=== PATIENT | female | born 1955 | race Caucasian/White ===

== ENCOUNTER → 2023-11-12 11:12 | Outpatient (REF) | payer MEDICARE, OTHER, SELFPAY ==
[2023-11-12 13:00] LABS: TSH < 0.02 uIU/ml (0.47-4.68)
== END ==
LOC: REG 11:12
PROVIDERS: ATTENDING PHYSICIAN Family Medicine
DX: E03.9 Hypothyroidism, unspecified (principal)
CPT/HCPCS: 36415; 84439; 84443

== ENCOUNTER → 2023-11-19 06:23 | Day surgery (SDC) | payer MEDICARE, OTHER, SELFPAY | LOC: GI 06:23 | PROVIDERS: ATTENDING PHYSICIAN Specialist; FAMILY PHYSICIAN Family Medicine | DX: K51.919 Ulcerative colitis, unspecified with unspecified complications (principal); K57.30 Diverticulosis of large intestine without perforation or abscess without bleeding; K52.89 Other specified noninfective gastroenteritis and colitis | CPT/HCPCS: 45380; 88305 ==

== ENCOUNTER → 2023-12-12 10:58 | Outpatient (REF) | payer MEDICARE, OTHER, SELFPAY ==
[2023-12-12 12:15] LABS: Free T4 1.14 ng/dl (0.78-2.19)
[2023-12-12 12:29] LABS: TSH 2.77 uIU/ml (0.47-4.68)
== END ==
LOC: REG 10:58
PROVIDERS: ATTENDING PHYSICIAN Family Medicine
DX: E03.9 Hypothyroidism, unspecified (principal)
CPT/HCPCS: 36415; 84439; 84443

== ENCOUNTER → 2023-12-23 12:14 | Outpatient (REF) | payer MEDICARE, OTHER, SELFPAY | LOC: WDC 12:14 | PROVIDERS: ATTENDING PHYSICIAN Obstetrics & Gynecology; FAMILY PHYSICIAN Family Medicine | DX: Z12.31 Encounter for screening mammogram for malignant neoplasm of breast (principal) | CPT/HCPCS: 77063; 77067 ==

== ENCOUNTER → 2024-03-09 13:10 | Outpatient (REF) | payer MEDICARE, OTHER, SELFPAY ==
[2024-03-09 14:46] LABS: Blood Urea Nitrogen 20 mg/dl (7-17)
[2024-03-09 15:14] LABS: TSH 3.08 uIU/ml (0.47-4.68)
== END ==
LOC: REG 13:10
PROVIDERS: ATTENDING PHYSICIAN Nurse Practitioner; FAMILY PHYSICIAN Family Medicine
DX: Z01.812 Encounter for preprocedural laboratory examination (principal); M54.14 Radiculopathy, thoracic region; E03.9 Hypothyroidism, unspecified
CPT/HCPCS: 36415; 82565; 84439; 84443; 84520

== ENCOUNTER → 2024-03-18 14:41 | Outpatient (REF) | payer MEDICARE, OTHER, SELFPAY ==
[2024-03-18 15:02] LABS: % Basophils 0.6 % (0-2); % Eosinophils 1.3 % (0-6); % Immature Granulocytes 0.1 % (0-0.5); % Lymphocytes 35.3 % (20.5-51.1); % Monocytes 5.4 % (1.7-9.3); % Neutrophils 57.3 % (42.2-75.2); Absolute Eosinophils 0.1 10^3/uL (0-0.7); Absolute Lymphocytes 2.4 10^3/uL (1.2-3.4); Absolute Monocytes 0.4 10^3/uL (0.1-0.6); Absolute Neutrophils 3.9 10^3/uL (1.4-6.5); Hematocrit 35.4 % (37.0-47.0); Hemoglobin 11.7 g/dL (12.0-16.0); Mean Corp Hgb Conc. 33.1 g/dL (33.0-37.0); Mean Corpuscular Hgb 31.4 pg (27.0-31.0); Mean Corpuscular Volume 94.9 fL (81.0-99.0); Mean Platelet Volume 8.5 fL (7.4-10.4); Nucleated Red Blood Cells % 0 %; Platelet Count 320 10^3/uL (130-400); Red Blood Cell Count 3.73 10^6/uL (4.20-5.40); Red Cell Dist. Width 14.5 % (11.5-14.5); White Blood Cell Count 6.8 10^3/uL (4.8-10.8)
[2024-03-18 15:12] LABS: INR 1.08
[2024-03-18 15:13] LABS: APTT 30.2 Sec (23.4-35.0)
== END ==
LOC: REG 14:41
PROVIDERS: ATTENDING PHYSICIAN Family Medicine
DX: R53.83 Other fatigue (principal); K51.90 Ulcerative colitis, unspecified, without complications
CPT/HCPCS: 36415; 85025; 85610; 85730

== ENCOUNTER → 2024-06-29 15:10 | Outpatient (REF) | payer MEDICARE, OTHER, SELFPAY | LOC: PAVMRI 15:10 | PROVIDERS: ATTENDING PHYSICIAN Psychiatry & Neurology Neurology; FAMILY PHYSICIAN Family Medicine | DX: M54.16 Radiculopathy, lumbar region (principal) | CPT/HCPCS: 72148 ==

== ENCOUNTER → 2024-07-02 08:25 | Outpatient (REF) | payer MEDICARE, OTHER, SELFPAY | LOC: MRI 3T 08:25 | PROVIDERS: ATTENDING PHYSICIAN Nurse Practitioner; FAMILY PHYSICIAN Family Medicine; REFERRING PHYSICIAN Psychiatry & Neurology Neurology | DX: M54.14 Radiculopathy, thoracic region (principal) | CPT/HCPCS: 72146 ==

== ENCOUNTER → 2024-08-25 08:47 | Outpatient (REF) | payer MEDICARE, OTHER, SELFPAY ==
[2024-08-25 09:54] LABS: % Basophils 0.4 % (0-2); % Eosinophils 1.7 % (0-6); % Immature Granulocytes 0.4 % (0-0.5); % Lymphocytes 35.7 % (20.5-51.1); % Monocytes 7.4 % (1.7-9.3); % Neutrophils 54.4 % (42.2-75.2); Absolute Eosinophils 0.1 10^3/uL (0-0.7); Absolute Lymphocytes 1.7 10^3/uL (1.2-3.4); Absolute Monocytes 0.4 10^3/uL (0.1-0.6); Absolute Neutrophils 2.6 10^3/uL (1.4-6.5); Hematocrit 35.5 % (37.0-47.0); Hemoglobin 11.9 g/dL (12.0-16.0); Mean Corp Hgb Conc. 33.5 g/dL (33.0-37.0); Mean Corpuscular Hgb 32.3 pg (27.0-31.0); Mean Corpuscular Volume 96.5 fL (81.0-99.0); Nucleated Red Blood Cells % 0 %; Platelet Count 297 10^3/uL (130-400); Red Blood Cell Count 3.68 10^6/uL (4.20-5.40); Red Cell Dist. Width 12.7 % (11.5-14.5); White Blood Cell Count 4.8 10^3/uL (4.8-10.8)
[2024-08-25 10:24] LABS: ALT (SGPT) 18 U/L (0-35); AST (SGOT) 27 U/L (14-36); Albumin 4.6 g/dl (3.5-5.0); Alkaline Phosphatase 62 U/L (38-126); Blood Urea Nitrogen 18 mg/dl (7-17); Calcium 10.5 mg/dl (8.4-10.2); Carbon Dioxide 26 mmol/L (22-30); Chloride 106 mmol/L (98-107); Glucose 86 mg/dl (70-99); Potassium 4.3 mmol/L (3.5-5.1); Sodium 142 mmol/L (135-145); Total Bilirubin 0.4 mg/dl (0.2-1.3); Total Protein 7.2 g/dl (6.3-8.2); eGFR > 60.00
[2024-08-25 10:28] LABS: C-Reactive Protein < 5.00 mg/L (0.0-10.00)
[2024-08-25 10:33] LABS: Total Iron Binding Capacity 283 ug/dl (265-497)
[2024-08-25 10:53] LABS: Intact PTH 68.1 pg/ml (13.6-85.8)
[2024-08-25 10:59] LABS: TSH 0.34 uIU/ml (0.47-4.68)
[2024-08-25 11:03] LABS: Ferritin 44.3 ng/ml (11.1-264.0)
[2024-08-25 11:18] LABS: Vitamin B12 997 pg/ml (239-931)
[2024-08-25 11:31] LABS: Erythrocyte Sed Rate 18 mm/hour (0-20)
[2024-08-26 19:40] LABS: Hepatitis B Surface Antigen Negative (Negative)
[2024-08-26 19:58] LABS: Hepatitis B Core Ab, Total Negative (Negative)
[2024-08-26 21:03] LABS: Hepatitis B Surface Antibody Indeterminate
[2024-08-27 11:02] LABS: Vitamin D 1,25 Dihydroxy 75.3 pg/mL (19.9-79.3)
[2024-08-27 14:04] LABS: Quantiferon Mitogen minus NIL 9.96 IU/mL; Quantiferon NIL 0.04 IU/mL; Quantiferon Plus TB1 minus NIL 0.01 IU/mL (<=0.34); Quantiferon Plus TB2 minus NIL 0.03 IU/mL (<=0.34); Quantiferon TB Gold Plus Negative (Negative)
== END ==
LOC: REG 08:47
PROVIDERS: ATTENDING PHYSICIAN Specialist; FAMILY PHYSICIAN Family Medicine
DX: E03.9 Hypothyroidism, unspecified (principal); I10 Essential (primary) hypertension; K51.90 Ulcerative colitis, unspecified, without complications; U07.1 COVID-19
CPT/HCPCS: 36415; 80053; 82607; 82652; 82728; 83550; 83970; 84443; 85025; 85652; 86140; 86480; 86704; 86706; 87340

== ENCOUNTER → 2024-10-04 10:43 | Outpatient (REF) | payer MEDICARE, OTHER, SELFPAY | LOC: EMG 10:43 | PROVIDERS: ATTENDING PHYSICIAN Psychiatry & Neurology Neurology; FAMILY PHYSICIAN Family Medicine | DX: M54.17 Radiculopathy, lumbosacral region (principal); R20.0 Anesthesia of skin; M54.16 Radiculopathy, lumbar region; M46.1 Sacroiliitis, not elsewhere classified; M54.50 Low back pain, unspecified; M25.551 Pain in right hip; R20.9 Unspecified disturbances of skin sensation | CPT/HCPCS: 73502; 95886; 95910 ==

== ENCOUNTER → 2024-12-24 11:21 | Outpatient (REF) | payer MEDICARE, OTHER, SELFPAY | LOC: WDC 11:21 | PROVIDERS: ATTENDING PHYSICIAN Family Medicine | DX: Z12.31 Encounter for screening mammogram for malignant neoplasm of breast (principal) | CPT/HCPCS: 77063; 77067 ==

== ENCOUNTER → 2025-05-17 07:47 | Outpatient (REF) | payer MEDICARE, OTHER, SELFPAY ==
[2025-05-17 08:21] LABS: Hematocrit 37.5 % (37.0-47.0); Hemoglobin 12.4 g/dL (12.0-16.0); Mean Corp Hgb Conc. 33.1 g/dL (33.0-37.0); Mean Corpuscular Volume 93.5 fL (81.0-99.0); Nucleated Red Blood Cells % 0 %; Platelet Count 286 10^3/uL (130-400); Red Cell Dist. Width 12.7 % (11.5-14.5)
[2025-05-17 09:08] LABS: ALT (SGPT) 15 U/L (0-35); AST (SGOT) 23 U/L (14-36); Albumin 4.7 g/dl (3.5-5.0); Alkaline Phosphatase 83 U/L (38-126); Blood Urea Nitrogen 21 mg/dl (7-17); Calcium 11.0 mg/dl (8.4-10.2); Carbon Dioxide 26 mmol/L (22-30); Chloride 106 mmol/L (98-107); Glucose 86 mg/dl (70-99); HDL Cholesterol 80 mg/dl; LDL Cholesterol, Calculated 116 mg/dl; Potassium 4.7 mmol/L (3.5-5.1); Sodium 137 mmol/L (135-145); Total Protein 7.3 g/dl (6.3-8.2); Very Low Density Lipoprotein 17 mg/dl (0-30); eGFR > 60.00
[2025-05-17 09:50] LABS: Urine Character Clear (Clear)
[2025-05-17 10:13] LABS: TSH 0.04 uIU/ml (0.47-4.68)
[2025-05-17 10:38] LABS: Urine Red Blood Cell 0-2 /HPF (0-2)
== END ==
LOC: REG 07:47
PROVIDERS: ATTENDING PHYSICIAN Family Medicine
DX: E03.9 Hypothyroidism, unspecified (principal); I10 Essential (primary) hypertension; E78.5 Hyperlipidemia, unspecified; R53.83 Other fatigue; N39.0 Urinary tract infection, site not specified
CPT/HCPCS: 36415; 80053; 80061; 81003; 81015; 83970; 84443; 85025

== ENCOUNTER → 2025-07-13 12:33 | Outpatient (REF) | payer MEDICARE, OTHER, SELFPAY ==
[2025-07-13 14:03] LABS: Urine Character Clear (Clear)
[2025-07-13 14:15] LABS: Urine Red Blood Cell 0-2 /HPF (0-2)
[2025-07-13 16:17] LABS: TSH 0.21 uIU/ml (0.47-4.68)
== END ==
LOC: REG 12:33
PROVIDERS: ATTENDING PHYSICIAN Family Medicine
DX: E03.9 Hypothyroidism, unspecified (principal); N39.0 Urinary tract infection, site not specified
CPT/HCPCS: 36415; 81003; 81015; 84443; 87086

== ENCOUNTER 2025-07-13 13:01 | Emergency (ER) | payer MEDICARE, OTHER, SELFPAY ==
[2025-07-13 14:07] VITALS: BMI 23.8
--- NOTE | 2025-07-13 14:34 | ED.GENMED ---
History of Present Illness
General
Chief Complaint: Fall
Source: patient
Exam Limitations: none
Time Seen by Provider: 07/13/25 14:03
Nursing documentation reviewed up to this point in time: agreed with
History of Present Illness
History of Present Illness:
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 Patient was getting outpatient blood work done for TSH and when she was walking out of her car she remembers looking left looking right and
woke up on the ground. She does not recall what happened. She denies feeling dizziness she does state however that when she was sitting waiting for the blood to be drawn she felt some palpitations. She denies having chest pain. She denies any
nausea or vomiting. She does complain of a headache, neck pain and bilateral knee pain and soreness to the right forearm. She at breakfast today but did not eat lunch. She does not believe this occurred because of her blood draw because she gets
blood draws very frequently.
Past History
Past History
ED Past Medical History: GERD, HTN, Hypothyroidism, Other (Ulcerative colitis) and Other
ED Past Surgical History: Gynecological, Orthopedic and Other
Social History
Tobacco: Former smoker
Alcohol: Occasional
Drug: None
Personal:
Living: with family
Employment: Employed
Family History
Family History: CAD
Phy Exam
General Physical Exam
General Presentation: no apparent distress
General age: appears stated age
General Skin: warm and dry
General Habitus: normal
General Mental: alert
General Hydration: appears well hydrated
ENT Exam
ENT Exam: EOMI
Eye Exam
Eye Exam: PERRL, EOMI and other (+ ecchymosis to right lateral orbit with tenderness no step offs no entrapment )
Eye Exam General: PERRL: bilateral and EOM intact: bilateral
Pupil Exam: Bilateral: round and reactive
Cardiovascular Exam
Cardiovascular Exam: regular rate/rhythm, no murmur and normal peripheral pulses
Pulmonary Exam
Pulmonary Exam: lungs clear and no respiratory distress
Neurological Exam
Neurological Exam: alert, oriented x3, no motor deficits and no sensory deficits
[place] Coma Scale
Eye Opening: Spontaneous
Verbal Response: Oriented
Motor Response: Obeys Commands
GCS Total Score: 15
Musculoskeletal Exam
Musculoskeletal Exam: other (Tender throughout the cervical spine; b/l knee ecchymosis mild anterior tenderness full ROM b/l : small abrasions to b/l knees )
Skin Exam
Skin Exam: normal color and warm/dry
Psychiatric Exam
Psychiatric Exam: normal mood/affect
Course
Orders/Labs/Results
Orders:
Orders
07/13/25 14:43
CT Cervical Spine W/o Iv Contr Urgent
Comment:
Reason For Exam: trauma
CT Facial Bones W/o Iv Contras Urgent
Comment:
Reason For Exam: right orbital pain/trauma
CT Head W/o Iv Contrast Urgent
Comment:
Reason For Exam: trauma
07/13/25 14:45
Electrocardiogram (*1) Stat
Reason for Study: Other
Other Reason for Exam: chest pain
Cardiac Monitoring- Treatment ONCE
EKG- Treatment ONCE
IV Insert/Care/Rem.- Treatment PRN
Orthostatic VS- Treatment ONCE
07/13/25 14:48
Knee, Left 4 or More Views [CR Knee - Left 4 Or More View*] Urgent
Comment:
Reason For Exam: trauma
Knee, Right 4 or More Views [CR Knee- Right 4 Or More View*] Urgent
Comment:
Reason For Exam: trauma
07/13/25 14:49
Forearm, Right 2 View [CR Forearm - Right 2 View] Urgent
Comment:
Reason For Exam: trauma
07/13/25 15:01
Complete Blood Count/With Diff Urgent
Comprehensive Metabolic Panel Urgent
Free T4 Urgent
TSH Reflex To Free T4 Urgent
07/13/25 15:58
Vital Signs- Treatment ONCE
Frequency: Once
07/13/25 16:20
0.9% Sodium Chloride 1000 ml [Nss] 1,000 ml IV BOLUS
Acetaminophen [Tylenol] 1,000 mg PO NOW STA
07/13/25 16:21
Acetaminophen [Tylenol] 500 mg .ROUTE .STK-MED ONE
07/13/25 17:11
Tetanus/Diphth/Acelpertussis [Adacel] 0.5 ml IM .ONCE ONE
Abnormal Lab Results
07/13/25
15:01
RBC 3.94 L 10^6/uL
(4.20-5.40)
MCHC 32.4 L g/dL
(33.0-37.0)
BUN 21 H mg/dl
(7-17)
Calcium 10.4 H mg/dl
(8.4-10.2)
TSH (Reflex) 0.18 L uIU/ml
(0.47-4.68)
07/13/25 15:01
07/13/25 15:01
Vital Signs
Initial and Last Documented VS:
Initial Vital Signs
Temp Pulse Resp Pulse Ox
97.7 F 79 20 97
07/13/25 13:06 07/13/25 13:06 07/13/25 13:06 07/13/25 13:06
Last Documented Vital Signs
Temp Pulse Resp BP Pulse Ox
97.7 F 66 20 142/82 97
07/13/25 13:06 07/13/25 16:00 07/13/25 13:06 07/13/25 16:00 07/13/25 14:36
Pension Consultant consulted with Physician
Pension Consultant consulted with physician?: Yes
MDM/Problems Addressed
Differential Diagnosis Includes:
Not limited to syncope, head injury, fracture
MDM/Problems Addressed:
As documented patient is a 69 year-old female who was walking outside in the parking lot and had a syncopal episode hitting her head. No prior chest pain/SOB. She did mention palpitations while sitting waiting for her blood work to be done prior
to arrival at outpatient lab.. Patient has been normal sinus rhythm here in the ER stable vitals in no acute distress. Patient has bruise to right orbit. She is not on blood thinners. She does have a headache. CT head orbital bones and C-spine
all negative. Patient had bruises to her both knees which were negative for fracture.tetanus updated. Patient denies any fever she is afebrile with a normal white count stable hemoglobin. BUN mildly elevated. Patient was given fluids
With syncope and complaints of palpitations at outpatient lab refer to cardiology. Patient has seen DR Verdin in the past.
TSH is low at 0.18 free T4 0.86. Family doctor is folowing her TSH and she has appt next Friday.
*Radiology
Radiology exam reviewed: radiology read reviewed
*Pulse Oximetry
SaO2: 97
Oxygen Mode of Delivery: Room air
Patient hypoxic: no
*EKG
Interpreted by ED Provider?: Yes
Interpretation: normal
Comparison EKG: no changes
Heart Rate: 60
Rate: normal
Rhythm: sinus
Ischemia: no ischemia
*Critical Care Note
Total Time (30-74mins, 75-104mins- exclusive of procedures): Not Applicable
ED Attending Note
-
Portions of this chart may have been created with voice recognition software.� Occasional wrong word or��sound alike� substitutions may have occurred due to the inherent limitations of voice recognition software.
Discharge Plan
Departure
Patient Disposition: Home (Routine Discharge)
Date of Disposition: 07/13/25
Time of Disposition: 17:13
Patient with high blood pressure during this ER visit?: Yes
Condition: Fair
Covid-19: Not Applicable
Discharge Problem:
Syncope, Head injury, Palpitations, Contusion, Abrasion
Instructions: Head Injury in Adults (DC), Skin Abrasions (DC), Syncope (fainting) (DC), Palpitations - ED (DC), BLOOD PRESSURE
Prescriptions:
No Action
balsalazide [Colazal] 750 MG capsule
2,250 mg PO TID
Effort Thyroid 30 MG tablet
90 mg PO DAILY
vitamin B complex 1 EACH tablet
1 ea PO DAILY
Canasa 500 MG suppository
500 mg IN HS PRN (Reason: colitis)
ibuprofen 200 MG tablet
400 mg PO Q8H PRN (Reason: pain)
Entyvio 300 MG/5 ML recon soln
300 mg IV .[id number]
Patient Comments:
0, 2, and 6 weeks then every 8 weeks
acetaminophen [Tylenol] 325 MG capsule
650 mg PO Q6H PRN (Reason: pain)
amlodipine [Norvasc] 5 MG tablet
10 mg PO DAILY
gabapentin 300 MG capsule
300 mg PO TID
losartan 25 MG tablet
25 mg PO DAILY
Referrals:
Chicho Salinas DO [Family Provider, Family Practice]
Brandin Higuera DO [Active, Cardiology]
Activity Restrictions/Additional Instructions:
As discussed stay well-hydrated. Follow-up with family doctor for reevaluation of your symptoms as well as cardiology for reevaluation of palpitations and syncopal episode.(Passing out).
You may take Tylenol as needed for symptoms. Return if any worsening of symptoms including chest pain shortness of breath dizzy lightheadedness or any further concerns.
Interventions
Interventions:
*Risk Screen - Suicide Last Done: 07/13/25 14:08
*General Assessment Last Done: 07/13/25 13:06
*Neglect/Abuse Screening Last Done: 07/13/25 14:08
*ED- Fall Risk Assessment Last Done: 07/13/25 14:08
*ED COVID-19 Vaccine History Last Done: 07/13/25 14:08
*ED Influenza Vaccine History Last Done: 07/13/25 14:08
*Nursing Disposition Last Done: 07/13/25 17:24
ED-Musculoskeletal Assessment Last Done: 07/13/25 14:09
ED- Neurological Assessment Last Done: 07/13/25 14:09
ED-Skin Assessment Last Done: 07/13/25 14:09
Discharge Date and Time
Discharge Date/Time: 07/13/25 18:00
Print Language: MALAY
[2025-07-13 15:09] LABS: Hematocrit 37.0 % (37.0-47.0); Hemoglobin 12.0 g/dL (12.0-16.0); Mean Corp Hgb Conc. 32.4 g/dL (33.0-37.0); Mean Corpuscular Volume 93.9 fL (81.0-99.0); Nucleated Red Blood Cells % 0 %; Platelet Count 266 10^3/uL (130-400); Red Cell Dist. Width 12.8 % (11.5-14.5)
[2025-07-13 15:31] LABS: ALT (SGPT) 18 U/L (0-35); AST (SGOT) 28 U/L (14-36); Albumin 4.4 g/dl (3.5-5.0); Alkaline Phosphatase 84 U/L (38-126); Blood Urea Nitrogen 21 mg/dl (7-17); Calcium 10.4 mg/dl (8.4-10.2); Carbon Dioxide 26 mmol/L (22-30); Chloride 106 mmol/L (98-107); Estimated Creatinine Clearance 60 ml/min; Glucose 86 mg/dl (70-99); Potassium 4.7 mmol/L (3.5-5.1); Sodium 137 mmol/L (135-145); Total Protein 6.9 g/dl (6.3-8.2); eGFR > 60.00
[2025-07-13 16:00] VITALS: BP 142/82
[2025-07-13 16:03] VITALS: BP 142/82; BP 153/75; BP 158/88; PULSE 64; PULSE 66
[2025-07-13] MEDS: TYLENOL 1000 MG PO (16:23)
[2025-07-13] MEDS: NSS 1000 IV (16:23)
[2025-07-13] MEDS: ADACEL 0.5 ML IM (17:18)
== END 2025-07-13 18:00 | disposition home or self-care (01) ==
LOC: EMR 13:01
PROVIDERS: Nurse Practitioner; EMERGENCY PHYSICIAN Student in an Organized Health Care Education/Training Program; FAMILY PHYSICIAN Family Medicine
DX: R55 Syncope and collapse (principal); S09.90XA Unspecified injury of head, initial encounter; R00.2 Palpitations; S00.11XA Contusion of right eyelid and periocular area, initial encounter; S80.02XA Contusion of left knee, initial encounter; S80.01XA Contusion of right knee, initial encounter; S80.212A Abrasion, left knee, initial encounter; S80.211A Abrasion, right knee, initial encounter; W18.39XA Other fall on same level, initial encounter; I10 Essential (primary) hypertension; E03.9 Hypothyroidism, unspecified; K51.90 Ulcerative colitis, unspecified, without complications; K21.9 Gastro-esophageal reflux disease without esophagitis; Z23 Encounter for immunization; Z87.891 Personal history of nicotine dependence; Z82.49 Family history of ischemic heart disease and other diseases of the circulatory system; Y93.01 Activity, walking, marching and hiking; Y92.481 Parking lot as the place of occurrence of the external cause
CPT/HCPCS: 99284; 96360; 90471; 70450; 70486; 72125; 73090; 73564; 80053; 84439; 84443; 85025; 90715; 93005

== ENCOUNTER → 2025-08-05 09:20 | Outpatient (REF) | payer MEDICARE, OTHER, SELFPAY | LOC: RAD 09:20 | PROVIDERS: ATTENDING PHYSICIAN Family Medicine | DX: Z78.0 Asymptomatic menopausal state (principal) | CPT/HCPCS: 77080 ==

== ENCOUNTER 2025-08-21 18:34 | Emergency (ER) | payer MEDICARE, OTHER, SELFPAY ==
[2025-08-21 18:42] VITALS: BP 192/89
[2025-08-21 19:24] VITALS: BMI 23.8
[2025-08-21] MEDS: AUGMENTIN 875 MG/125 MG 1 TABLET PO (19:36)
--- NOTE | 2025-08-21 19:51 | ED.SKININJ ---
HPI-Injury
General
Chief Complaint: Bite
Time Seen by Provider: 08/21/25 19:29
History of Present Illness-Injury
Initial Injury comments:
69-year-old female presents to the ER for evaluation after she was bitten by a feral cat this afternoon. Patient washed the wound copiously with soap and water. She is up-to-date on her tetanus. She is right-handed. She denies any other
injuries. She was trying to capture the cat to bring it to the vet for neuter and release. She has never received the rabies series before.
Past History
Past History
ED Past Medical History: GERD, HTN, Hypothyroidism, Other (Ulcerative colitis) and Other
ED Past Surgical History: Gynecological, Orthopedic and Other
Social History
Tobacco: Former smoker
Alcohol: Occasional
Drug: None
Personal:
Living: with family
Employment: Employed
Family History
Family History: CAD
Review of Systems
Review of Systems
Allergies reviewed?: Yes
Phy Exam
Physical Exam
Physical Exam:
Vital signs reviewed, patient is awake, alert, appears in no acute distress, head is normocephalic atraumatic, mucous membranes moist, conjunctiva pink, right hand examination reveals 2 puncture wounds present in the webspace between digits 1 and 2
on the dorsum of the hand with minimal surrounding ecchymosis, no limitation with active range of motion of the digits of the right hand, no proximal streaking, no crepitance, no significant discomfort on palpation over the area, brisk cap refill
present to the digits of the right hand, GCS is 15
Course
Orders/Labs/Results
Orders:
Orders
08/21/25 19:32
Amoxicillin 875 mg/Clav 125 mg [Augmentin 875 mg/125 mg] 1 tablet PO NOW STA
Rabies Immune Globulin/Pf [HyperRAB] 1,179 unit IM NOW STA
Rabies Vaccine (Pcec)/Pf [Rabavert Rabies Vacc W-Diluent] 2.5 unit IM .ONCE ONE
08/21/25 19:38
Rabies Immune Globulin/Pf [HyperRAB] 1,179 unit IM NOW STA
Vital Signs
Initial and Last Documented VS:
Initial Vital Signs
Temp Pulse Resp BP Pulse Ox
98.4 F 73 16 192/89 99
08/21/25 18:42 08/21/25 18:42 08/21/25 18:42 08/21/25 18:42 08/21/25 18:42
Last Documented Vital Signs
Temp Pulse Resp BP Pulse Ox
98.4 F 73 16 192/89 99
08/21/25 18:42 08/21/25 18:42 08/21/25 18:42 08/21/25 18:42 08/21/25 19:51
MDM/Problems Addressed
Differential Diagnosis Includes:
Differential diagnosis considered but not limited to puncture wound, potential deep space infection, rabies exposure along with other etiologies considered
Chronic conditions affecting care:
Hypertension, hypothyroid, palpitations, colitis, previous GI bleeding
*Radiology
Radiology exam reviewed: other (X-ray considered but not ordered given limited area of injury and no tenderness on exam)
*Pulse Oximetry
SaO2: 99
Oxygen Mode of Delivery: Room air
Patient hypoxic: no
*Critical Care Note
Total Time (30-74mins, 75-104mins- exclusive of procedures): Not Applicable
Update Note
Update Note:
Patient is up-to-date on her tetanus booster. She is in agreement for rabies immunoglobulin and vaccine series. Will give first dose of Augmentin prior to discharge. She has no questions at the current time.
2004: I injected 1 mL of immunoglobulin into the skin surrounding puncture sites of the right hand. Patient tolerated this well. Rest to be administered IM. Patient expressed understanding of full discharge instructions and medication usage along
with return precautions. She has no questions at the current time.
ED Attending Note
-
Portions of this chart may have been created with voice recognition software.� Occasional wrong word or��sound alike� substitutions may have occurred due to the inherent limitations of voice recognition software.
Discharge Plan
Departure
Patient Disposition: Home (Routine Discharge)
Date of Disposition: 08/21/25
Time of Disposition: 20:10
Patient with high blood pressure during this ER visit?: Yes
Discharge Problem:
Cat bite, Need for prophylactic vaccination and inoculation against rabies
Instructions: Rabies (DC), Rabies Vaccine CDC Vaccine Information Statement (VIS), Animal bites - ED (DC)
Prescriptions:
New
amoxicillin-pot clavulanate 875-125 mg tablet
1 tab PO BID Qty: 14 0RF
RabAvert (PF) 2.5 unit suspension for reconstitution
1 ml IM ONCE Qty: 3 0RF
No Action
balsalazide [Colazal] 750 MG capsule
2,250 mg PO TID
Pamplico Thyroid 30 MG tablet
90 mg PO DAILY
vitamin B complex 1 EACH tablet
1 ea PO DAILY
Canasa 500 MG suppository
500 mg MT HS PRN (Reason: colitis)
ibuprofen 200 MG tablet
400 mg PO Q8H PRN (Reason: pain)
Entyvio 300 MG/5 ML recon soln
300 mg IV .[id number]
Patient Comments:
0, 2, and 6 weeks then every 8 weeks
acetaminophen [Tylenol] 325 MG capsule
650 mg PO Q6H PRN (Reason: pain)
amlodipine [Norvasc] 5 MG tablet
10 mg PO DAILY
gabapentin 300 MG capsule
300 mg PO TID
losartan 25 MG tablet
25 mg PO DAILY
Stand Alone Forms: Rabies Vaccine Post Exp Dosing
Activity Restrictions/Additional Instructions:
Please go to the outpatient infusion department on Friday for your next vaccination. Complete course of antibiotics (Augmentin) as prescribed. Return to the ER for any concerns including but not limited to worsening pain, redness, anything
draining that looks like pus or if you are having a fever.
Interventions
Interventions:
*Risk Screen - Suicide Last Done: 08/21/25 18:42
*General Assessment Last Done: 08/21/25 18:42
*Neglect/Abuse Screening Last Done: 08/21/25 18:42
*ED- Fall Risk Assessment Last Done: 08/21/25 19:24
*ED COVID-19 Vaccine History Last Done: 08/21/25 18:42
*ED Influenza Vaccine History Last Done: 08/21/25 18:42
ED-Skin Assessment Last Done: 08/21/25 19:25
Discharge Date and Time
Print Language: IRANIAN
[2025-08-21] MEDS: RABAVERT RABIES VACC W-DILUENT 2.5 UNIT IM (20:07)
== END 2025-08-21 20:35 | disposition home or self-care (01) ==
LOC: EMR 18:34
PROVIDERS: EMERGENCY PHYSICIAN Emergency Medicine; FAMILY PHYSICIAN Family Medicine
DX: S61.431A Puncture wound without foreign body of right hand, initial encounter (principal); W55.01XA Bitten by cat, initial encounter; Z20.3 Contact with and (suspected) exposure to rabies; Z23 Encounter for immunization; K21.9 Gastro-esophageal reflux disease without esophagitis; I10 Essential (primary) hypertension; E03.9 Hypothyroidism, unspecified; K51.90 Ulcerative colitis, unspecified, without complications; Z82.49 Family history of ischemic heart disease and other diseases of the circulatory system; Z87.891 Personal history of nicotine dependence
CPT/HCPCS: 99282; 90471; 96372; 90375; 90675

== ENCOUNTER → 2025-08-31 15:03 | Outpatient (REF) | payer MEDICARE, OTHER, SELFPAY | LOC: RCS 15:03 | PROVIDERS: ATTENDING PHYSICIAN Nurse Practitioner; FAMILY PHYSICIAN Family Medicine | DX: I10 Essential (primary) hypertension (principal); R06.09 Other forms of dyspnea; R55 Syncope and collapse | CPT/HCPCS: 93306 ==

== ENCOUNTER → 2025-09-02 12:48 | Outpatient (REF) | payer MEDICARE, OTHER, SELFPAY | LOC: RCS 12:48 | PROVIDERS: ATTENDING PHYSICIAN Nurse Practitioner; FAMILY PHYSICIAN Family Medicine | DX: I10 Essential (primary) hypertension (principal); R06.09 Other forms of dyspnea; R55 Syncope and collapse | CPT/HCPCS: 93017; 93350; Q9950 ==

== ENCOUNTER 2025-09-05 14:28 | Outpatient (RCR) | payer MEDICARE, OTHER, SELFPAY ==
[2025-08-24 15:05] VITALS: BP 157/75
[2025-08-24] MEDS: RABAVERT RABIES VACC W-DILUENT 2.5 UNIT IM (15:17)
[2025-08-29 14:35] VITALS: BP 148/66
[2025-08-29] MEDS: RABAVERT RABIES VACC W-DILUENT 2.5 UNIT IM (14:56)
[2025-09-05 14:31] VITALS: BP 150/75
[2025-09-05] MEDS: RABAVERT RABIES VACC W-DILUENT 2.5 UNIT IM (14:38)
== END 2025-09-06 09:02 | disposition home or self-care (01) ==
LOC: OID 14:28
PROVIDERS: ATTENDING PHYSICIAN Emergency Medicine
DX: Z20.3 Contact with and (suspected) exposure to rabies (principal); Z23 Encounter for immunization
CPT/HCPCS: 90471; 90675

== ENCOUNTER → 2025-09-20 12:11 | Outpatient (REF) | payer MEDICARE, OTHER, SELFPAY ==
[2025-09-20 13:51] LABS: TSH 3.73 uIU/ml (0.47-4.68)
== END ==
LOC: REG 12:11
PROVIDERS: ATTENDING PHYSICIAN Family Medicine
DX: E03.9 Hypothyroidism, unspecified (principal); U07.1 COVID-19
CPT/HCPCS: 36415; 84439; 84443